=== PATIENT | female | born 1955 | race Caucasian/White ===

== ENCOUNTER 2024-04-03 06:53 | Day surgery (SDC) | payer MEDICARE, OTHER ==
[2024-03-21 10:21] VITALS: BP 143/81
[~2024-04-03] VITALS: Ht 172.7 cm; Wt 87.7 kg
[~2024-04-03 06:53] MED LIST: CALCIUM MAG D PO; CARDIZEM60 MG PO; ELIQUIS5 MG PO; ESOMEPRAZOLE MA40 MG PO; FLEVOXIN TABLE1 EACH PO; K-TAB ER20 MEQ PO; LACTATED RINGER'S 1,000 ML IV SCH; LEVOTHYROXINE88 MC1 PO; OSTERA TABLET1 EACH PO; ROSUVASTATIN CA20 MG PO; Ropivacaine HCl 20 MG/10 ML AMP ONE; SODIUM CHLORIDE 0.9% 500 ML IV ONE; TURMERIC500 M3 PO
[2024-04-03] MEDS ORDERED: ROPIVACAINE IN 0.9% SOD CHL/PF 545 ML ELS.PMP.HR IRRIGATION SCH (07:00)
[2024-04-03] MEDS ORDERED: OXYCODONE HCL 5 MG TAB PO SCH (07:00)
[2024-04-03] MEDS ORDERED: IBLOOD GLUCOSE TEST STRIP 1 EA TEST VI PRN ×2 (07:00→11:15)
[2024-04-03] MEDS ORDERED: TRANEXAMIC ACID 2,000 MG in SODIUM CHLORIDE 0.9% 100 ML IV SCH (07:00)
[2024-04-03] MEDS ORDERED: LIDOCAINE HCL 1% 5 ML SDV INJ ONE (07:00)
[2024-04-03] MEDS ORDERED: INTRA-ARTICULAR ANALGESIC INJECTION XX SCH (07:00)
[2024-04-03] MEDS ORDERED: GABAPENTIN 600 MG TAB PO SCH (07:00)
[2024-04-03] MEDS ORDERED: PANTOPRAZOLE SODIUM 40 MG TABEC PO SCH (07:00)
[2024-04-03] MEDS ORDERED: CEFAZOLIN SODIUM 2 GM/20 ML SYR IV SCH ×2 (07:00→15:00)
[2024-04-03] MEDS ORDERED: ondansetron HCL 4 MG TAB PO SCH (07:00)
[2024-04-03 07:15] VITALS: BP 135/71
[2024-04-03 07:45] LABS: INR 1.07 (0.80-1.30); PROTIME 13.2 Sec (11.2-14.2)
[2024-04-03] MEDS ORDERED: MIDAZOLAM HCL 2 MG/2 ML VIAL ONE (08:29)
[2024-04-03] MEDS ORDERED: DEXAMETHASONE SOD PHOS 4 MG/ML VIAL ONE (08:30)
[2024-04-03] MEDS ORDERED: Ropivacaine HCl 0.5% 30 ML VIAL ONE (08:30)
[2024-04-03] MEDS ORDERED: dexmedeTOMIDine HCl 200 MCG/2 ML VIAL ONE (08:30)
[2024-04-03] MEDS ORDERED: SODIUM CHLORIDE 0.9% 20 ML IV ONE (08:30)
[2024-04-03] MEDS ORDERED: LIDOCAINE HCL 2% 5 ML SDV ONE ×3 (08:30→09:13)
[2024-04-03] MEDS ORDERED: propofoL 200 MG/20 ML VIAL ONE (08:43)
[2024-04-03] MEDS ORDERED: KETOROLAC TROMETHAMINE 30 MG/ML VIAL IV PRN (09:00)
[2024-04-03] MEDS ORDERED: NALOXONE HCL 0.4 MG SYR IV PRN ×2 (09:00→11:15)
[2024-04-03] MEDS ORDERED: OXYCODONE HCL 5 MG TAB PO PRN (09:00)
[2024-04-03] MEDS ORDERED: ePHEDrine sulfate 50 MG/ML AMP ONE (09:43)
[2024-04-03] MEDS ORDERED: LACTATED RINGER'S 1,000 ML IV ONE (10:22)
[2024-04-03] MEDS ORDERED: KETOROLAC TROMETHAMINE 30 MG/ML VIAL ONE (10:43)
[2024-04-03] MEDS ORDERED: ondansetron HCL 4 MG/2 ML VIAL IV PRN ×2 (11:15→13:00)
[2024-04-03] MEDS ORDERED: HYDROmorphone HCL 1 MG/ML SYR IV PRN (11:15)
[2024-04-03] MEDS ORDERED: fentaNYL citrate 50 MCG/ML SDV IV PRN (11:15)
[2024-04-03] MEDS ORDERED: TRANEXAMIC ACID 2,000 MG in SODIUM CHLORIDE 0.9% 100 ML IV ONE (11:44)
[2024-04-03 11:52] VITALS: BP 119/57
[2024-04-03] MEDS ORDERED: ACETAMINOPHEN 1,000 MG/100 ML VIAL IV ONE (12:15)
[2024-04-03 12:30] VITALS: BP 127/61
--- NOTE | 2024-04-03 13:34 | OR ---
[facility] [address], [place] [address] Signed DATE OF OPERATION: 04/03/2024 SURGEON: Shelbi Downs MD PREOPERATIVE DIAGNOSIS: Left knee degenerative joint disease, severe. POSTOPERATIVE DIAGNOSIS: Left knee degenerative joint disease, severe. PROCEDURE PERFORMED: Left total knee arthroplasty with Evaristo. BEHAVIORAL MODIFICATION ASSISTANT: Meena Yen PA-C. Meena was present and critical for all portions of procedure. ANESTHESIA: Spinal. BLOOD LOSS: 175 mL. TOURNIQUET TIME: Zero. IMPLANTS: Ava Triathlon size 5, 11 mm insert and 32 mm patella. BRIEF HISTORY: Yonathan is a 68-year-old female with progressive worsening of arthritis of the patellofemoral and medial compartments. She had undergone nonoperative treatment without substantial relief. Risks and benefits of operative treatment were discussed with her and she elected to proceed. PROCEDURE IN DETAIL: Once consent was obtained she was taken to the operating room after adequate anesthesia. She was placed on operating table. All downside pressure points were well padded. Hip bump was placed. The leg was then prepped and draped in the standard sterile fashion. Her prior incision medially was then incised longitudinally were about two-third of its Electronically Signed By: SHELBI DOWNS MD 04/03/24 1334 PATIENT NAME: YONATHAN DOMINGUEZ OPERATIVE REPORT DATE OF : 51 REPORT #: [id number] PHYSICIAN: SHELBI DOWNS MD PCP: NO PRIMARY CARE PHYSICIAN REPORT IS CONFIDENTIAL AND NOT TO BE RELEASED WITHOUT AUTHORIZATION [facility] [address], [place] [address] Signed length. This was taken through the skin and subcutaneous tissue and directly down to the knee. A low mid vastus arthrotomy was then performed and the infrapatellar fat pad was excised. The MCL was elevated of a sleeve around the posteromedial corner. The anterior horns of the menisci and the ACL were transected. The navigation computer arrays were placed in the medial femoral condyle and proximal tibia. The leg was then registered with computer followed by the fine anatomic points of the knee. The four ligamentous poses were then taken. Mild adjustments were made to the implant plan and the robot was brought in. The four straight cuts and two angle cuts were made with care taken to protect the patellar tendon and MCL. The bone was found to be quite soft and the bony remnants were removed. The osteophytes were removed off the femur and posterior femur. No release was performed. The trials were then positioned. Knee was taken from 0-120 degrees with good stability throughout. The patella was cut, sized and drilled for 32 mm patella. The lateral osteophyte was removed off the patella as well. The patella was noted to track well and was quite stable. The femur was drilled followed by the keel punch for the tibia. It was then elected to go with a cemented hybrid prosthesis. The implants were selected. The bone was cleared of blood and debris. The cement was mixed, once we reached proper consistency, was placed on the tibia and patella and corresponding bone. The tibia was impacted until it was well seated and flushed. All excess cement was removed. The polyethylene was snapped into position and the femur was impacted. The knee was then extended and loaded. The patella was clamped into position again, no any overflow. Cement was removed. The cement was allowed to harden, once it hardened sufficiently any remaining overflow was removed using osteotomes. The knee was then irrigated with one bottle of Surgiphor followed by normal saline. The periarticular soft tissues were injected with 100 mL ropivacaine and Toradol mixture. The On-Q pain pump was percutaneously placed into the adductor canal from the suprapatellar pouch. The arthrotomy was then closed using a combination of #2 FiberWire, #2 Stratafix, subcutaneous tissue with 0 Stratafix. The skin was extremely thin, so we elected to go ahead and staple the skin. The wound was then dressed with Acticoat-7 dressing, ABDs and Kranthi wrap. She tolerated the procedure well. All sponge, needle, and instrument counts were correct. Shelbi Downs MD BA/MODL /[id number] Electronically Signed By: SHELBI DOWNS MD 04/03/24 1334 PATIENT NAME: YONATHAN DOMINGUEZ OPERATIVE REPORT DATE OF : 51 REPORT #: [id number] PHYSICIAN: SHELBI DOWNS MD PCP: NO PRIMARY CARE PHYSICIAN REPORT IS CONFIDENTIAL AND NOT TO BE RELEASED WITHOUT AUTHORIZATION [address] [address] Signed Copies: ~ Electronically Signed By: SHELBI DOWNS MD 04/03/24 1334 PATIENT NAME: YONATHAN DOMINGUEZ OPERATIVE REPORT DATE OF : 51 REPORT #: [id number] PHYSICIAN: SHELBI DOWNS MD PCP: NO PRIMARY CARE PHYSICIAN REPORT IS CONFIDENTIAL AND NOT TO BE RELEASED WITHOUT AUTHORIZATION
[2024-04-03 13:36] VITALS: BP 121/49
[2024-04-03 14:35] VITALS: BP 120/65
[2024-04-03] MEDS ORDERED: GABAPENTIN 300 MG CAP PO SCH (15:00)
[2024-04-03] MEDS ORDERED: SENNOSIDES 1 TAB PO SCH (21:00)
[2024-04-04] MEDS ORDERED: Rivaroxaban 10 MG TAB PO SCH (08:00)
[2024-04-04] MEDS ORDERED: CELECOXIB 200 MG CAP PO SCH (08:00)
[2024-04-04] MEDS ORDERED: cefuroxime axetiL 250 MG TAB PO SCH (09:00)
== END 2024-04-03 14:35 | disposition home or self-care (01) ==
LOC: DS 06:53
PROVIDERS: Nurse Anesthetist, Certified Registered; ATTEND Specialist
PROC: 0SRD0JZ Replacement of Left Knee Joint with Synthetic Substitute, Open Approach (ICD-10-PCS; principal; 2024-04-03 09:30)
DX: M17.12 Unilateral primary osteoarthritis, left knee (principal); I48.91 Unspecified atrial fibrillation; E78.00 Pure hypercholesterolemia, unspecified; E03.9 Hypothyroidism, unspecified; G47.33 Obstructive sleep apnea (adult) (pediatric); Z88.5 Allergy status to narcotic agent; Z88.8 Allergy status to other drugs, medicaments and biological substances; Z79.899 Other long term (current) drug therapy
CPT/HCPCS: 01400; 36415; 64447; 64450; 73560; 76942; 85610; 97116; 97161; A9270; C1713; C1776; J0131; J0690; J1100; J1885; J2001; J2250; J2704; J2795; J3010; J7040; J7121; J7999